=== PATIENT | male | born 2000 | race Caucasian/White ===

== ENCOUNTER 2024-09-26 08:36 | Emergency (ER) | payer OTHER, SELFPAY ==
[2024-09-26 08:43] VITALS: BP 142/65; PULSE 79; RESP 18; TEMP 36.6; O2SAT 99
--- NOTE | 2024-09-26 08:48 | ED.URI ---
HPI - URI/Sore Throat General Chief Complaint: Upper Respiratory Infection Stated Complaint: cough/throat/chills Time Seen by Provider: 09/26/24 09:07 Source: patient and RN notes reviewed Mode of arrival: ambulatory Limitations: no limitations History of Present Illness HPI Narrative: 23-year-old male presents with concern for 3 day history of cough, body aches, chills. He denies taking any medications for his symptoms. He denies runny nose, reports some stuffy nose. Denies sore throat. MD elicited complaint: cough Related Data Home Medications Medication Instructions Recorded Confirmed albuterol sulfate 90 mcg/actuation inhalation 09/26/24 aerosol inhaler budesonide-formoterol HFA 80 inhalation 09/26/24 09/26/24 mcg-4.5 mcg/actuation aerosol inhaler (Breyna) Allergies Allergy/AdvReac Type Severity Reaction Status Date / Time No Known Allergies Allergy Verified 09/26/24 08:48 Review of Systems Review of Systems: CONSTITUTIONAL: Denies malaise, chills, sweats, or fever. EYES: Denies visual changes, redness, or discharge. ENT: Reports congestion. Denies rhinorrhea, sinus pain, otalgia and sore throat. CARDIOVASCULAR: Denies chest pain, palpitations, or edema. RESPIRATORY: Reports cough. Denies dyspnea. GASTROINTESTINAL: Denies abdominal pain, nausea, vomiting, diarrhea SKIN: Denies rash or itching. MUSCULOSKELETAL: Report myalgia. NEUROLOGIC: Denies headache. All systems reviewed & are unremarkable except as noted in HPI and below PMFSH Family History Family History (Updated 08/24/22 @ 11:02 by Vanita Winter MA) Mother Cancer of kidney Social History Social History (Updated 09/28/22 @ 09:22 by Vanita Winter MA) Smoking status: Current every day smoker Tobacco type: e-cigarettes/vaping Alcohol intake: current Alcohol use details: BEER RARE Lack of Transportation: No Lack of Food: Often True Current Housing: Decline to Answer Concerned About Future Housing: No Difficulty Paying Gas/Electric Bills: No Difficulty Paying for Meds: Decline to Answer Currently Unemployed: Decline to Answer Education: High School Diploma/GED Difficulty w/ Childcare or Family Care: No Comments At time of signature, agree with nursing past medical, surgical, social and family history. There is no relevant family history pertinent to the presenting complaint Exam Narrative: GENERAL: Well-appearing, well-nourished, and in no acute distress. HEAD: Normocephalic EYES: PERRLA, conjunctivae clear ENT: Nares clear. Mucous membranes moist. TM pearly aparicio with dull light reflex bilaterally; no tragal tenderness. Oropharynx not erythematous without lesions. Tonsils not enlarged and without exudate, no drooling, no hoarseness, no trismus, uvula midline. NECK: Supple. No lymphadenopathy CHEST: Clear to auscultation, breath sounds equal. No wheezing, rhonchi, rales, or stridor. No respiratory distress, speaks in full sentences. HEART: Regular rate and rhythm. No murmur heard. SKIN: Warm, dry, no rash. NEURO: Alert and oriented x3. PSYCH: Normal mood and affect Course Course Emergency Course: Patient is aware of diagnosis, understands and agrees to treatment plan. Anticipatory guidance given. Patient agrees to follow-up as directed and is aware of reasons to seek care at the emergency department. Portions of this record may have been created with voice recognition software Level of Care: Express Care Visit Vital Signs Vital signs: Reviewed. MDM - URI/Sore Throat MDM Narrative Medical decision making narrative: Differential diagnosis considered: Rodriguez virus, strep pharyngitis, allergic rhinitis, upper respiratory tract infection, sinusitis, rhinosinusitis, nasopharyngitis. viral pharyngitis, otitis media, otitis externa, pneumonia, bronchitis, viral cough syndrome, viral syndrome, and influenza. Exam findings show no acute concerns or changes; patient is non-toxic appearing and is in no distress. Patient is appropriate for outpatient treatment and follow-up. Lab Data Attestation: I reviewed the patient's lab results. Critical Care Time Critical Care Time Critical Care Time: No Discharge Plan Discharge Clinical Impression: Bronchitis Patient Disposition: Home, Self-Care Condition: Stable Instructions: Acute Bronchitis (ED) Additional Instructions: Viral illness may last between 7-21 days; antibiotics do not cure viral illness and are NOT recommended at this time. Recommend antihistamine such as Benadryl at night time and Zyrtec or Jenni during the day Cough syrup may cause drowsiness; avoid driving or take it at night time. Use your inhaler as needed for cough, wheezing, shortness of breath or chest tightness. Also, recommend symptomatic treatment includes: rest, fluids, and increase humidity of the air at home. Recommend Acetaminophen as directed on the bottle to reduce fever, pain, headache. Avoid smoking/second-hand smoke. Please schedule a follow-up visit with your personal physician for further evaluation and treatment within 3-5days. If your symptoms persist, change or worsen significantly before you can contact your personal physician then please, without delay, go to the emergency department for further evaluation. Prescriptions: New promethazine-DM 6.25-15 mg/5 mL syrup 5 ml PO Q4-6H PRN (Reason: cough) Qty: 120 0RF methylprednisolone [Medrol (Brent)] 4 mg tablets,dose pack See Rx Instructions .ROUTE .COMPLEX Qty: 21 0RF Rx Instructions: orally per package directions No Action albuterol sulfate 90 mcg/actuation HFA aerosol inhaler INHALATION budesonide-formoterol [Breyna] 80-4.5 mcg/actuation HFA aerosol inhaler INHALATION Follow-up/Referrals: Faheem,Lon Mora MD [Primary Care Provider] - Stand Alone Forms: Work/School Release IP Time of Disposition: 09:16
[2024-09-26 09:10] LABS: EDCOVIDSCREEN Negative (Negative); EDINFLUASCREEN Negative (Negative); EDINFLUBSCREEN Negative (Negative)
== END 2024-09-26 09:20 | disposition home or self-care (01) ==
PROVIDERS: Emergency Provider Nurse Practitioner; PCP Pediatrics
DX: J40 Bronchitis, not specified as acute or chronic (principal); Z20.822 Contact with and (suspected) exposure to COVID-19; F17.290 Nicotine dependence, other tobacco product, uncomplicated
CPT/HCPCS: 87426; 87804; 99213; G0463

== ENCOUNTER 2024-11-19 12:23 | Emergency (ER) | payer OTHER, SELFPAY ==
[2024-11-19 13:00] VITALS: BP 148/78; PULSE 102; RESP 18; TEMP 36.7; O2SAT 98
--- OUTSIDE RECORDS SUMMARY | 2024-11-19 13:16 | XMS_ITS | Clinical Summary ---
Author Organization [facility] Address [address] [place] [address] Phone Care Team Providers Care Instrumentation Engineer Name Role Phone Provider, None Primary Care Provider Unavailabl e Allergies No known active allergies Medications No known medications Social History Tobacco Use Types Packs/Day Years Used Date Smoking Tobacco: Never Smokeless Tobacco: Never Tobacco Cessation:Counseling Given: No Alcohol Use Standard Drinks/Week Comments Yes 0 (1 standard drink = 0.6 oz pur e alcohol) Not often Sex and Gender Information Value Date Recorded Sex Assigned at Not on file Legal Sex Male 11:00 PM CDT Gender Identity Not on file Sexual Orientation Not on file Last Filed Vital Signs Vital Sign Reading Time Taken Comments Blood Pressure 119/80 02/18/2023 1:28 AM CDT Pulse 89 02/18/2023 1:28 AM CDT Temperature 36.3 ??C (97.4 ??F) 02/17/2023 10:48 PM C DT Respiratory Rate 18 02/18/2023 1:28 AM CDT Oxygen Saturation 99% 02/18/2023 1:28 AM CDT Inhaled Oxygen Concentration - - Weight 124.7 kg (275 lb) 02/17/2023 10:48 PM CDT Height 175.3 cm (5' 9 ) 02/17/2023 10:48 PM CDT Body Mass Index 40.61 02/17/2023 10:48 PM CDT Plan of Treatment Health Maintenance Due Date Last Done Comments Hepatitis C Virus (HCV) Screening 1998 Human Papillomavirus (HPV) Immunization (2 - Male 3-dose series) 11/02/2014 10/05/2014 Influenza Immunization (#1) 2024 10/05/2014, 1 10/28/2012 SARS-COV-2 Immunization (2023-25 season) 2024 Respiratory Syncytial Virus (RSV) Immunization (Adult) (1 - 1-dose 75+ series) 2073 Hepatitis B Immunization Completed 999, 1998, 1998 Pneumococcal Immunization Combined Completed 11/01/2000, 07/10/2000 DTaP/Tdap/Td Immunization Discontinued 2009, 01/18/2004, 02/21/2000, Additional history exists Meningococcal Immunization (ACWY) Aged Out 04/21/2010 No longer eligible based on patient's age to complete this topic TdaP Immunization Completed 04/21/2010 Rotavirus Immunization Aged Out No lo nger eligible based on patient's age to complete this topic Insurance [facility] Care Teams Instrumentation Engineer Relationship Specialty Start Date End Date Provider, None [place] PCP - General 02/18/23
--- NOTE | 2024-11-19 14:00 | ED_ITS ---
HPI - URI/Sore Throat General Chief Complaint: Upper Respiratory Infection Stated Complaint: congestion/no voice/cough Time Seen by Provider: 11/19/24 13:50 Source: patient, RN notes reviewed and old records reviewed Mode of arrival: ambulatory Limitations: no limitations History of Present Illness HPI Narrative: 24 year od male presents to express care with complaints of cough with expectoration of green mucous for 3 days and today he awoke with hoarseness. Patient reports that he recently traveled via plane from [place] for a conference. Patient does have history of asthma and has been using his inhalers as ordered. Patient reports that he has also been taking Ibuprofen for sinus congestion, pressure and pain, Patient reports that he has not had any known fevers chills or body aches. MD elicited complaint: cough, rhinorrhea and nasal congestion Pertinent past history: asthma Onset (ago): day(s) (3) Severity: moderate Description of mucous: green Able to tolerate fluids by mouth: Yes Treatments prior to arrival: ibuprofen and other (using inhalers) Related Data Home Medications ?Medication ?Instructions ?Recorded ?Confirmed ?Last Taken ?Type albuterol sulfate 90 mcg/actuation 90 mcg inhalation DIRECTED 09/26/24 09/26/24 Unknown History aerosol inhaler budesonide-formoterol HFA 80 1 inh inhalation DIRECTED 09/26/24 09/26/24 Unknown History mcg-4.5 mcg/actuation aerosol inhaler (Breyna) Allergies Allergy/AdvReac Type Severity Reaction Status Date / Time No Known Allergies Allergy Verified 11/19/24 12:32 Review of Systems Review of Systems: CONSTITUTIONAL: Reports malaise,no chills, sweats, or fever. EYES: Denies visual changes, redness, or discharge. ENT: Reports rhinorrhea, congestion, sinus pain, no otalgia and no sore throat, reports hoarseness. CARDIOVASCULAR: Denies chest pain, palpitations, or edema. RESPIRATORY: Reports productive cough? Denies any acute dyspnea. GASTROINTESTINAL: Denies abdominal pain, nausea, vomiting, diarrhea SKIN: Denies rash or itching. MUSCULOSKELETAL: Denies myalgia. NEUROLOGIC: Denies headache. All systems reviewed & are unremarkable except as noted in HPI and below PMFSH Past Medical History Medical History Depression Obesity Insomnia Asthma Family History Family History Mother Cancer of kidney Social History Social History Smoking status: Current every day smoker Tobacco type: e-cigarettes/vaping Alcohol intake: current Alcohol use details: BEER RARE Lack of Transportation: No Lack of Food: Often True Current Housing: Decline to Answer Concerned About Future Housing: No Difficulty Paying Gas/Electric Bills: No Difficulty Paying for Meds: Decline to Answer Currently Unemployed: Decline to Answer Education: High School Diploma/GED Difficulty w/ Childcare or Family Care: No Comments At time of signature, agree with nursing past medical, surgical, social and family history. There is no relevant family history pertinent to the presenting complaint Exam Narrative: GENERAL: Well-appearing, well-nourished, obese,and in no acute distress. HEAD: Normocephalic EYES: PERRLA, conjunctivae clear ENT: Nares clear, turbinates edematous and erythematous, clear discharge, sinus pressure. Mucous membranes moist. TM pearly aparicio with dull light reflex bilaterally; no tragal tenderness. Oropharynx erythematous without lesions. Tonsils not enlarged and without exudate, no drooling, + hoarseness, no trismus, uvula midline. NECK: Supple. No lymphadenopathy post nasal drainage CHEST: Coarse to auscultation, breath sounds equal. No wheezing, rhonchi, rales, or stridor. No respiratory distress, speaks in full sentences.productive cough, SAO2 98% on room air HEART: Regular rate and rhythm. No murmur heard. SKIN: Warm, dry, no rash. NEURO: Alert and oriented x3. PSYCH: Normal mood and affect Course Course Emergency Course: Patient is aware of diagnosis, understands and agrees to treatment plan.? Anticipatory guidance given.? Patient agrees to follow-up as directed and is aware of reasons to seek care at the emergency department. Portions of this record may have been created with voice recognition software Level of Care: Express Care Visit Vital Signs Vital signs: Vital Signs Temperature 36.7 C 11/19/24 13:00 Pulse Rate 102 H 11/19/24 13:00 Respiratory Rate 18 11/19/24 13:00 Blood Pressure 148/78 H 11/19/24 13:00 Pulse Oximetry 98 11/19/24 13:00 Oxygen Delivery Room Air 11/19/24 13:00 Temperature 36.7 C 11/19/24 13:00 Pulse Rate 102 H 11/19/24 13:00 Respiratory Rate 18 11/19/24 13:00 Blood Pressure 148/78 H 11/19/24 13:00 Pulse Oximetry 98 11/19/24 13:00 Oxygen Delivery Room Air 11/19/24 13:00 Reviewed MDM - URI/Sore Throat MDM Narrative Medical decision making narrative: Differential diagnosis considered: Rodriguez virus, strep pharyngitis, allergic rhinitis, upper respiratory tract infection, sinusitis, rhinosinusitis, nasopharyngitis. viral pharyngitis, otitis media, otitis externa, pneumonia, bronchitis, viral cough syndrome, viral syndrome, and influenza.? Exam findings show no acute concerns or changes; patient is non-toxic appearing and is in no distress.? Patient is appropriate for outpatient treatment and follow-up. Differential Diagnosis Differential diagnosis: Likely upper respiratory infection, sinusitis, bronchitis and other (acute cough) Medical Records Attestation: I reviewed the patient's medical records. Lab Data Attestation: I reviewed the patient's lab results. Lab results narrative: COVID antigen negative, Influenza A negative, Influenza B negative Labs: Lab Results 11/19/24 Range/Units 12:30 POC Influenza A Ag Negative (Negative) POC Influenza B Ag Negative (Negative) POC SARS CoV-2 Ag Negative (Negative) Critical Care Time Critical Care Time Critical Care Time: No Discharge Plan Discharge Clinical Impression: Bronchitis Patient Disposition: Home, Self-Care Condition: Stable Instructions: Antibiotic Form, Acute Bronchitis (ED) Additional Instructions: Increase fluids especially juices and water [id number] cough and cold medicine of your choice for your symptoms Zyrtec Claritin or Jenni daily Continue your inhaler/nebulizer as directed Steroids as directed--take with food heat to the face 20-30 minutes 4-6 times a day for pain Salt water gargles, throat lozenges or throat sprays as desired Mucinex daily If your symptoms persist, change or worsen significantly before you can contact your personal physician then please, without delay, go to the emergency department for further evaluation. Follow-up with PCP in 7-10 days or sooner if needed Follow up with PCP soon in regards to your blood pressure which is elevated above threshold for referral. Blood pressure above 120/80 may indicate pre- hypertension. Patient Language: Sinhala Prescriptions: New prednisone 20 mg tablet 20 mg PO BID Qty: 10 0RF No Action albuterol sulfate 90 mcg/actuation HFA aerosol inhaler 90 mcg INHALATION DIRECTED budesonide-formoterol [Breyna] 80-4.5 mcg/actuation HFA aerosol inhaler 1 inh INHALATION DIRECTED Follow-up/Referrals: PHYSICIAN,HYDROELECTRIC SYSTEMS TECHNICIAN [Primary Care Provider] - Time of Disposition: 14:18 Quality Emiliano Coma Scale Eyes: Open Verbal: Oriented and Alert Motor: Follows Commands Emiliano Coma Total Score: 15
[2024-11-19 14:03] LABS: EDCOVIDSCREEN Negative (Negative); EDINFLUASCREEN Negative (Negative); EDINFLUBSCREEN Negative (Negative)
== END 2024-11-19 14:23 | disposition home or self-care (01) ==
PROVIDERS: Emergency Provider Registered Nurse
DX: J40 Bronchitis, not specified as acute or chronic (principal); Z20.822 Contact with and (suspected) exposure to COVID-19; F17.290 Nicotine dependence, other tobacco product, uncomplicated; J45.909 Unspecified asthma, uncomplicated; E66.9 Obesity, unspecified
CPT/HCPCS: 87426; 87804; 99213; G0463